=== PATIENT | female | born 1970 | race Caucasian/White ===

== ENCOUNTER 2016-07-07 08:20 | Emergency (ER) | END 2016-07-07 09:39 | disposition home or self-care (01) | DX: J06.9 Acute upper respiratory infection, unspecified (principal); J45.909 Unspecified asthma, uncomplicated | CPT/HCPCS: 71010; Z7502 ==

== ENCOUNTER 2016-07-16 09:42 | Emergency (ER) | payer OTHER ==
[~2016-07-16] VITALS: Wt 68.0 kg
[~2016-07-16 09:42] MED LIST: BENZ100C70 PO; D-ME473S2 PO; FLUT9.9S NASAL
[2016-07-16] MEDS ORDERED: ALBUTEROL 0.5% (NEB) 2.5 MG/0.5 ML AMP HHN STA (10:32)
[2016-07-16] MEDS ORDERED: IPRATROPIUM (NEB) 0.5 MG/2.5 ML AMP HHN ONE (11:00)
[2016-07-16] MEDS ORDERED: METHYLPREDNISOLONE 125 MG INJ IM ONE (11:00)
[2016-07-16] MEDS ORDERED: PRED20TA PO (12:05)
[2016-07-16] MEDS ORDERED: ALBU18HF INHALATION (12:05)
[2016-07-16] MEDS ORDERED: ALBU2.5V3 NEB (12:05)
[2016-07-16] MEDS ORDERED: AZIT250T94 PO (12:05)
--- NOTE | 2016-07-28 17:29 | ERD ---
ER Documentation Chief Complaint Date/Time DATE: 07/28/16 TIME: 17:27 Chief Complaint COUGH AND CONGESTION NOT BETTER WITH MEDS, PRODUCTIVE COUGH NOW HPI This 45-year-old female presents with cough and congestion last few days. She was treated last week with [id number]-[id number] cough syrup and Tessalon Perles. Patient has productive sputum and possible wheeze. She denies chest pain, vomiting, abdominal pain, diarrhea. ROS All systems reviewed and are negative except as per history of present illness. Medications Home Meds Active Scripts Azithromycin* (Zithromax*) 250 Mg Tablet, 250 MG PO .ZPACK DIRECTED, #6 TAB TAKE 500 MG (2 TABS) THE FIRST DAY THEN 250 MG (1 TAB) DAYS 2-5 Prov:KODI OSCAR MD 07/16/16 Albuterol Sulfate* (Ventolin HFA*) 18 Gm Hfa.aer.ad, 2 PUFF INHALATION Q4H, #1 INHALER Prov:KODI OSCAR MD 07/16/16 Albuterol Sulfate* (Albuterol Sulfate* Neb) 0.083%-3 Ml Neb, 2.5 MG NEB Q4 Y for SHORTNESS OF BREATH, #30 EA Prov:KODI OSCAR MD 07/16/16 Prednisone* (Prednisone*) 20 Mg Tab, 60 MG PO DAILY for 5 Days, #12 TAB 60 mg by mouth for 2 days then 40 mg by mouth for 3 days. Prov:KODI OSCAR MD 07/16/16 Dextromethorphan Hb-Promethazine Hcl* (Promethazine DM* Syrup) 473 Ml Syrup, 5 ML PO Q6 Y for COUGH for 7 Days, ML Prov:KERWIN LONDONO PA-C 07/07/16 Fluticasone Propionate (Flonase Allergy Relief) 9.9 Ml [place].susp, 1 SPRAY NASAL BID, #1 BOTTLE TO EACH NOSTRIL Prov:KERWIN LONDONO PA-C 07/07/16 Benzonatate* (Tessalon Perle*) 100 Mg Capsule, 100 MG PO Q8H Y for COUGH for 14 Days, CAP Prov:KERWIN LONDONOC 07/07/16 Allergies Allergies: Coded Allergies: No Known Allergy (Unverified , 07/07/16) PMhx/Soc History of Surgery: No Anesthesia Reaction: No Hx Neurological Disorder: No Hx Respiratory Disorders: Yes (ASTHMA) Hx Cardiac Disorders: No Hx Psychiatric Problems: No Hx Miscellaneous Medical Probl: Yes (TUBAL LIGATION) Hx Alcohol Use: Yes (once/6 months) Hx Substance Use: No Hx Tobacco Use: No Physical Exam Physical Exam Const: [] Alert, [id number] per Head: Atraumatic Eyes: Normal Conjunctiva ENT: Normal External Ears, Nose and Mouth. Neck: Full range of motion..~ No meningismus. Resp: Clear to auscultation bilaterally. Coarse breath sounds with mild wheeze. No rales or retractions. Cardio: Regular rate and rhythm, no murmurs Abd: Soft, non tender, non distended. Normal bowel sounds Skin: No petechiae or rashes Back: No midline or flank tenderness Ext: No cyanosis, or edema Neur: Awake and alert Psych: Normal Mood and Affect Results 24 hrs Current Medications Medications (Trade) Dose Ordered Sig/Melba Route PRN Reason Start Time Stop Time Status Last Admin Dose Admin Albuterol (Proventil 0.5% (Neb)) 5 mg ONCE STAT HHN 07/16/16 10:32 07/16/16 10:47 DC 07/16/16 10:54 Ipratropium [place] (Atrovent 0.02% (Neb)) 0.5 mg ONCE ONCE HHN 07/16/16 11:00 07/16/16 11:01 DC 07/16/16 10:54 Methylprednisolone Sodium Succinate (Solu-Medrol) 125 mg ONCE ONCE IM 07/16/16 11:00 07/16/16 11:01 DC 07/16/16 10:50 Procedures/MDM Patient had normal x-ray last week. Patient has signs and symptoms of bronchitis with wheezing. Given the duration and persistent symptoms. She will be treated with a short course prednisone, Zithromax and refills of albuterol for nebulizer and inhaler. Patient shows no signs of hypoxemia or respiratory distress. The patient was stable with no new complaints during the ER course. Clinically, there is no current evidence to suggest meningitis, sepsis, acute abdomen, pneumonia, acute coronary syndrome, pulmonary embolism, or any other emergent condition appearing to require further evaluation or hospitalization. The patient should certainly return for any new or worsening symptoms per the aftercare instructions. They should otherwise follow-up with her primary care doctor for reevaluation this week. Departure Diagnosis: Primary Impression: URI, acute Condition: Stable Patient Instructions: Bronchitis With Wheezing (Adult) Additional Instructions: Recheck for new or worsening symptoms or with primary care doctor per KODI OSCAR MD Jul 28, 2016 17:29
== END 2016-07-16 12:27 | disposition home or self-care (01) ==
LOC: FTE 09:42
DX: R05 Cough (principal); J45.909 Unspecified asthma, uncomplicated
CPT/HCPCS: 94664; 96372; J2930; Z7502; Z7610

== ENCOUNTER 2016-08-30 11:30 | Emergency (ER) | payer OTHER ==
[~2016-08-30] VITALS: Wt 78.0 kg
[~2016-08-30 11:30] MED LIST changes: +ALBU18HF INHALATION; +ALBU2.5V3 NEB; +AZIT250T94 PO; +PRED20TA PO
[2016-08-30] MEDS ORDERED: ONDANSETRON (ODT) 4 MG TAB ODT STA (12:08)
[2016-08-30] MEDS ORDERED: ACET325T33 PO (12:10)
[2016-08-30] MEDS ORDERED: ONDA4TAB8 PO (12:10)
--- NOTE | 2016-08-30 15:54 | ERD ---
DATE OF SERVICE: HISTORY OF PRESENT ILLNESS: The patient is a 45-year-old female complaining of diarrhea for 3 days. 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 She phan d vomiting 3 days ago, which has now resolved. She is able tolerate p.o. She has not had any abdom inal pain. She has been taking Imodium and ibuprofen with no alleviation of her symptoms. She also has been taking Pedialyte, which she feels has helped prevent her feeling more weak that she alread y is. MEDICAL HISTORY: Asthma. ALLERGIES TO MEDICATIONS: Denies. SURGICAL HISTORY: Denies. SOCIAL HISTORY: Denies. REVIEW OF SYSTEMS: A 12-point review of systems was done. Refer to HPI for positives, all other sy stems negative. PHYSICAL EXAMINATION VITAL SIGNS: Temperature is 99.1, pulse 78, blood pressure 152/68, respiratory 18, O2 saturation 99 % on room air. Pain intensity is 0/10. GENERAL: The patient is well-appearing, well-nourished, no acute distress. HEENT: Atraumatic. Conjunctivae are pink. Pupils equal, round, and reactive to light. There is no s cleral icterus. Tympanic membranes clear bilaterally. Oropharynx clear. No nystagmus or photophobia . CHEST: Clear to auscultation bilaterally. There are no rales, wheezes or rhonchi. HEART: Regular rate and rhythm. No murmurs, clicks, rubs or gallops. No S3 or S4. ABDOMEN: Soft, nontender and nondistended. Good bowel sounds. No rebound or guarding. No gross nella tonitis. No gross organomegaly or masses. No Owen sign or McBurney point tenderness. SKIN: There is no apparent rash or petechia. The skin is warm and dry. DIAGNOSIS: Diarrhea. MEDICAL DECISION MAKING: I have low suspicion for dehydration. The patient is not tachycardic and patient is able to tolerate p.o. with no vomiting. I have low suspicion for infectious diarrhea as the patient has had no bloody stool. She does not have abdominal pain on exam and vital signs are s table. The patient's symptoms are likely associated with viral etiology. I did not feel that there was indication for blood work or IV hydration at this time. The patient is tolerating p.o. and is stable for outpatient management. DISCHARGE: The patient is discharged stable. Patient given prescription for Zofran and Tylenol, an d told to follow up with primary care within 1 to 2 days for reevaluation. The patient was recommen ded to refrain from taking Imodium. All other questions answered at time of discharge. Discharge s ummary given at the time of departure. Patient understood and complied with plan. Dictated By: ROSEMARIE JEAN BAPTISTE PA for [facility] Conf#: [id number] DID#: [id number]
== END 2016-08-30 12:22 | disposition home or self-care (01) ==
LOC: FTE 11:30
DX: R19.7 Diarrhea, unspecified (principal); J45.909 Unspecified asthma, uncomplicated
CPT/HCPCS: Z7502; Z7610; 99283

== ENCOUNTER 2017-04-06 05:15 | Inpatient (IN) | payer OTHER ==
[2017-04-05 10:07] VITALS: BMI 26.6
[~2017-04-06] VITALS: Ht 160 cm; Wt 67.2 kg
[2017-04-06] VITALS (22 sets, daily range): BP systolic 119–138; BP diastolic 58–73; PULSE 18–113; RESP 18–20; Ht 160 cm; Wt 67.2 kg
--- NOTE | 2017-04-06 04:15 | PREOPHP ---
DATE OF ADMISSION: 04/06/2017 HISTORY OF PRESENT ILLNESS: This is a 46-year-old lady, 3, para 3. Her last normal menstrual period was about a week prior to admission. She was admitted for D and C, exploratory laparotomy, total abdominal hysterectomy, possible BSO if evidence of endometriosis. This patient complains of chronic pelvic pain for the last 8 years and getting worse up to the time of admission. She bleeds heavy with her periods, associated with blood clots. She is known to have multiple fibroids with possible submucous fibroids or endometrial polyps. The procedures were explained to the patient and she understood everything totally. The risks, benefits, and alternatives were discussed with her as well. PAST MEDICAL HISTORY: No history of diabetes, TB. The patient has a history of asthma. SURGICAL HISTORY: She had tubal ligation in 2003. FAMILY HISTORY: Mother has diabetes and father has high blood pressure. 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 She is 3, para 3 with 3 normal deliveries. REVIEW OF SYSTEMS: CARDIOVASCULAR: No chest pains. RESPIRATORY: No cough. GASTROINTESTINAL: No diarrhea. No vomiting. GENITOURINARY: No dysuria. PHYSICAL EXAMINATION: GENERAL APPEARANCE: Reveals a conscious, coherent lady, in no acute distress. VITAL SIGNS: Blood pressure 120/80, pulse rate 80 per minute, respirations 16 per minute. LUNGS: Breath sounds and lungs within normal limits. ABDOMEN: Soft. No organomegaly. PELVIC EXAM: Reveals the cervix to be firm. Uterus about 12 weeks size. Adnexa were negative for masses. RECTAL EXAM: Confirmed the pelvic findings. EXTREMITIES: No pedal edema. ADMITTING DIAGNOSES: 1. Chronic pelvic pain. 2. Fibroid uterus, possible submucous fibroid, rule out endometriosis. PLAN: The patient was planned to have the above procedures. Dictated By: Roxana Erazo MD /[email or web address]/[email or web address] /Document#: [id number]
[~2017-04-06 05:15] MED LIST changes: +ACET325T33 PO; +ONDA4TAB8 PO
[2017-04-06] MEDS ORDERED: ROCURONIUM 50 MG INJ ONE (07:25)
[2017-04-06] MEDS ORDERED: GLYCOPYRROLATE 0.4 MG INJ ONE ×2 (07:25→08:11)
[2017-04-06] MEDS ORDERED: NEOSTIGMINE 3 MG/3 ML SYRINGE ONE (07:25)
[2017-04-06] MEDS ORDERED: SUCCINYLCHOLINE CHLORIDE 100 MG/5 ML SYG IV ONE (07:25)
[2017-04-06] MEDS ORDERED: MEPERIDINE 100 MG INJ ONE (07:25)
[2017-04-06] MEDS ORDERED: PROPOFOL 20 ML ONE (07:25)
[2017-04-06] MEDS ORDERED: LIDOCAINE 2% (SDV) 5 ML INJ ONE (07:25)
[2017-04-06] MEDS ORDERED: CEFAZOLIN 1 GM INJ ONE (08:10)
[2017-04-06] MEDS ORDERED: METOCLOPRAMIDE 10 MG INJ ONE (08:46)
[2017-04-06] MEDS ORDERED: ONDANSETRON 4 MG INJ ONE (08:46)
--- NOTE | 2017-04-06 09:20 | SIPON ---
Date/Time of Note Date/Time of Note DATE: 04/06/17 TIME: 09:18 Operative Report Preoperative Diagnosis FIBROID UTERUS MENORRHAGIA CHRONIC PELVIC PAIN PERINEAL RELAXATION Postoperative Diagnosis FIBROID UTERUS MENORRHAGIA CHRONIC PELVIC PAIN PERINEAL RELAXATION RIGHT OVARIAN CYST FROZEN SECTION BENIGN Operation/Procedure Performed DILATATION AND CURETTAGE TOTAL ABDOMINAL HYSTERECTOMY VAGINAL VAULT SUSPENSION RIGHT OVARIAN CYSTECTOMY Surgeon see signature line training assistant DR CARABALLO Anesthesia: general Estimated blood loss: 150 - 200 ml's Transfusion Required none Specimen CERVIX BODY OF UTERUS Grafts/Implants none Complications none FIDEL FLORES MD Apr 06, 2017 09:20
[2017-04-06] MEDS ORDERED: METOCLOPRAMIDE 10 MG INJ IV PRN (09:30)
[2017-04-06] MEDS ORDERED: LABETALOL HCL 20MG INJ IV PRN (09:30)
[2017-04-06] MEDS ORDERED: MIDAZOLAM 1 MG/ML 2 ML INJ IV PRN (09:30)
[2017-04-06] MEDS ORDERED: MEPERIDINE 25 MG INJ IV PRN (09:30)
[2017-04-06] MEDS ORDERED: EPHEDrine SULFATE 50 MG/5 ML SYG IV PRN (09:30)
[2017-04-06] MEDS ORDERED: OXYCODONE/ACETAMINOPHEN (5/325) TAB PO PRN ×2 (09:30)
[2017-04-06] MEDS ORDERED: ONDANSETRON 4 MG INJ IV PRN ×2 (09:30→13:30)
[2017-04-06] MEDS ORDERED: FENTAnyl 50 MCG/ML VIAL IV PRN ×3 (09:30)
[2017-04-06] MEDS ORDERED: DIPHENHYDRAMINE 50 MG INJ IV PRN (09:30)
[2017-04-06] MEDS ORDERED: HYDROmorphONE (0.2 MG/ML) 10ML SYG IV PRN ×2 (09:30)
[2017-04-06] MEDS ORDERED: hydrALAzine 20 MG INJ IV PRN (09:30)
[2017-04-06] MEDS: HYDROmorphONE (0.2 MG/ML) 10ML SYG IV PRN ×3 (09:44→09:59)
--- NOTE | 2017-04-06 10:59 | OPR ---
DATE OF OPERATION: 04/06/2017 PREOPERATIVE DIAGNOSES: 1. Fibroid uterus. 2. Menorrhagia. 3. Chronic pelvic pain. 4. Perineal relaxation. POSTOPERATIVE DIAGNOSES: 1. Fibroid uterus. 2. Menorrhagia. 3. Chronic pelvic pain. 4. Perineal relaxation. 5. Right ovarian cyst. SURGEON: Roxana Erazo MD RIBBON HAND: Ethan Mora MD ANESTHESIA: General. OPERATION PERFORMED: Fractional dilatation and curettage, frozen section and benign exploratory laparotomy, total abdominal hysterectomy, vaginal vault suspension, and right ovarian cystectomy. OPERATIVE TECHNIQUE: Under general anesthesia, the patient was prepped and draped in the usual fashion for vaginal and abdominal surgery. Pelvic exam under anesthesia revealed the cervix to be firm, uterus about 12 weeks' size and irregular. Then, the heavyweight vaginal retractor was put in place, and the anterior lip of the cervix was grasped with an Allis clamp, and the cervical dilatation up to Hegar 6 was proceeded. Uterus was sounded to about 3 inches. Then, the cervical curettage was done. A small amount of tissue was obtained. Endometrial curettage was done, and a small amount of tissue was obtained. This was sent for frozen section, and it was benign. Then, the Hernandez catheter was put in place. The patient's legs were put down, and the patient was prepped and draped in the usual fashion for abdominal surgery. Then, a Pfannenstiel incision, about 12 cm skin incision, was performed. The incision was carried from the skin up to the fascia. Upon opening the skin up to the fascia, the small blood vessels were noted to be oozing, and these were all cauterized. Fascia was opened transversely followed by splitting the muscles vertically and the peritoneum vertically. Upon opening the abdominal cavity, the operative abdominal organs were palpated. They were within normal limits. Then, the pelvic organs were brought to view. There is a 4 x 4- cm cyst on the right ovary, and then the uterus was noted to be about 12 weeks' size with small fibroids noted. Status post tubal ligation was noted. Then, the self-retaining retractor was put in place. The bladder blade was put in place. The bowels were packed away from the operative field with the aid of 6 wet lap sponges. The upper blade was put in place. Then, two 8-inch Kochers were placed at its paratubal and paraovarian ligament for traction. The left round ligament was grasped with 2 Kochers and cut. A stick tie with 0 Vicryl was used and cut. Then, the left broad ligament was skeletonized for the development of the bladder flap. Then, the left utero-ovarian and uterotubal ligament was grasped with 2 Breezy clamps and cut. A stick tie of 0 Vicryl was used followed by a free tie with 0 Vicryl was used followed by Breezy suture. Bleeders were checked, and there was no bleeding noted. Same thing was done on the right side. The right round ligament was stick tied with 0 Vicryl and cut and tied. The right broad ligament was skeletonized for the development of the bladder flap. The right utero-ovarian and right uterotubal ligament was grasped with 2 Breezy clamps for backflow with straight Rock and cut. At first, a free tie with 0 Vicryl was used followed by Breezy suture. Bleeders were checked, and there was no bleeding noted. Then, the right ovary was noted to have a 4 x 4-cm cyst. The cautery was placed at the middle of the cyst and the cyst ruptured. It was noted to be a chocolate-colored cyst. Then, electrocautery on the right ovary to check for any bleeder, and there was no bleeding noted. Then, the broad ligament on both sides were skeletonized for the development of the bladder flap. Then, the left uterine vessels were brought to view. The left uterine vessels were grasped with 2 Breezy clamps and for backflow with straight Rock and cut. A stick tie with 0 Vicryl was used on its clamp. The same thing was done on the right side. Bleeders were checked, and there was no bleeding noted. Once again, the bladder was from the cervix by sharp and blunt dissection. Then, about 4 more Kochers were placed at its paracervical tissue on the left and right side. Every time the Rock was put in, the bladder was from the cervix by sharp and blunt dissection. Then, the bleeders were checked, and there was no bleeding noted. First, the body of the uterus was excised after clamping the uterine vessel. Then, another piece of cervix was excised after putting the 4 Kochers on each side. Then, the remaining cervix was grasped with 2 single-tooth tenaculums. Once again, about 5 more Kochers were placed at its paracervical tissue on the left and right side, and its Rock tissue was cut, and stick tie with 0 Vicryl was used. Then, the cervicovaginal angle was brought to view, and it was stabbed with a knife, and the rest of the cervix was excised. Then, the vaginal cuff was grasped with multiple Kochers. Then, the vaginal cuff was sutured in 2 layers using 0 Vicryl continuous suture. The right angle of the vagina was sutured with a right paracervical tissue and in turn tied with the right round ligament for vaginal vault suspension. After checking for any bleeders, in which there was none, same thing was done on the left side. Irrigation was done. There was some oozing on the right angle of the vaginal vault and 2 figure-of- eight sutures were put in. This was on the anterior vaginal wall. Once again, irrigation was done to check for any bleeders, and there was no bleeding noted. Then, after checking all the stumps for any bleeders in which there was none, and after correct sponge count, needle count, and instrument count, the abdomen was closed in the usual fashion using 0 Vicryl for the peritoneum, 0 Vicryl for the muscles. For the fascia, 0 Vicryl continuous stitch was used followed by a few [id number]-oy-oqgrj sutures. For the subcutaneous tissue, it was closed with 3-0 Vicryl, and the skin was closed with 3-0 Vicryl. Subcuticular suture was used. Patient tolerated the procedure well. ESTIMATED BLOOD LOSS: About 200 mL. CONDITION: Vital signs were stable during and after the procedure. Dictated By: Roxana Erazo MD /[email or web address] /Document#: [id number]
[2017-04-06] MEDS: LACTATED RINGER'S 1,000 ML IV SCH ×2 (12:18→19:51)
[2017-04-06] MEDS: ONDANSETRON 4 MG INJ IV PRN ×2 (13:31→17:37)
[2017-04-06] MEDS: HYDROmorphONE 2 MG/ML SYG IV PRN ×2 (13:31→17:38)
[2017-04-07 00:30] VITALS: BP 121/59; RESP 18
[2017-04-07] MEDS: LACTATED RINGER'S 1,000 ML IV SCH ×3 (02:45→16:23)
[2017-04-07 04:48] VITALS: BP 134/70; PULSE 101; RESP 20
[2017-04-07] MEDS: BISACODYL 10 MG SUPP PR SCH ×2 (05:31→16:29)
[2017-04-07] MEDS: MAGNESIUM HYDROXIDE 30ML CUP PO SCH ×2 (05:31→16:29)
[2017-04-07 05:32] LABS: BASOPHILS % 0.1 % (0.0-2.0); EOSINOPHILS % 0.1 % (0.0-7.0); HEMATOCRIT 31.5 % (37.0-47.0); HEMOGLOBIN 9.6 g/dl (12.0-16.0); LYMPHOCYTES # 1.4 10^3/ul (0.8-2.9); LYMPHOCYTES % 11.5 % (15.0-51.0); MEAN CORPUSCULAR HEMOGLOBIN 23.8 pg (29.0-33.0); MEAN CORPUSCULAR HGB CONC 30.5 g/dl (32.0-37.0); MEAN PLATELET VOLUME 10.8 fl (7.4-10.4); MONOCYTE # 0.8 10^3/ul (0.3-0.9); MONOCYTES % 6.6 % (0.0-11.0); NEUTROPHIL # 9.8 10^3/ul (1.6-7.5); NEUTROPHILS % 81.3 % (39.0-77.0); PLATELET COUNT 204 10^3/UL (140-415); RED BLOOD COUNT 4.04 10^6/ul (4.20-5.40)
[2017-04-07 06:03] LABS: ALBUMIN 3.1 g/dl (3.3-4.9); ALBUMIN/GLOBULIN RATIO 0.96; BILIRUBIN,INDIRECT 0.2 mg/dl (0-1.1); BILIRUBIN,TOTAL 0.2 mg/dl (0.2-1.3); CALCIUM 8.6 mg/dl (8.4-10.2); CREATININE 0.58 mg/dl (0.44-1.00); POTASSIUM 3.9 mmol/L (3.5-5.1); TOTAL PROTEIN 6.3 g/dl (6.1-8.1)
[2017-04-07 08:30] VITALS: BP 114/60; RESP 18
[2017-04-07] MEDS ORDERED: INFLUENZA VIRUS VACCINE 0.5 ML SYG IM* ONE (12:00)
[2017-04-07] MEDS: HYDROmorphONE 2 MG/ML SYG IV PRN (13:57)
[2017-04-07] MEDS ORDERED: HYDROmorphONE 2 MG TAB PO PRN (15:30)
[2017-04-07] MEDS ORDERED: IBUPROFEN 800 MG TAB PO PRN (15:30)
[2017-04-07] MEDS: ALBUTEROL 18 GM INHALER INH PRN (19:37)
[2017-04-07 20:13] VITALS: BP 126/58; RESP 18
[2017-04-07] MEDS: GUAIFENESIN/DM 5ML CUP PO SCH (22:36)
[2017-04-08] MEDS: ALBUTEROL 18 GM INHALER INH PRN (00:07)
[2017-04-08 00:29] VITALS: BP 107/54; RESP 20
[2017-04-08] MEDS: LACTATED RINGER'S 1,000 ML IV SCH ×2 (04:00→11:33)
[2017-04-08 05:22] LABS: BASOPHILS % 0.2 % (0.0-2.0); EOSINOPHILS % 0.4 % (0.0-7.0); HEMATOCRIT 31.2 % (37.0-47.0); HEMOGLOBIN 9.5 g/dl (12.0-16.0); LYMPHOCYTES # 1.7 10^3/ul (0.8-2.9); LYMPHOCYTES % 18.1 % (15.0-51.0); MEAN CORPUSCULAR HEMOGLOBIN 23.8 pg (29.0-33.0); MEAN CORPUSCULAR HGB CONC 30.4 g/dl (32.0-37.0); MEAN CORPUSCULAR VOLUME 78.2 fl (82.0-101.0); MEAN PLATELET VOLUME 10.9 fl (7.4-10.4); MONOCYTE # 0.6 10^3/ul (0.3-0.9); MONOCYTES % 6.5 % (0.0-11.0); NEUTROPHIL # 7.1 10^3/ul (1.6-7.5); NEUTROPHILS % 74.3 % (39.0-77.0); PLATELET COUNT 198 10^3/UL (140-415); RED BLOOD COUNT 3.99 10^6/ul (4.20-5.40); RED CELL DISTRIBUTION WIDTH 16.3 % (11.5-14.5); WHITE BLOOD COUNT 9.6 10^3/ul (4.8-10.8)
[2017-04-08 07:49] VITALS: BP 113/55; RESP 19
[2017-04-08] MEDS: GUAIFENESIN/DM 5ML CUP PO SCH ×2 (08:34→12:28)
[2017-04-08 14:00] VITALS: BP 118/59; RESP 18
== END 2017-04-08 18:50 | disposition home or self-care (01) | DRG 743 ==
LOC: REC 05:15 → MS1 10:35
PROVIDERS: ADMIT Obstetrics & Gynecology; ATTEND Obstetrics & Gynecology
PROC: 0UB00ZZ Excision of Right Ovary, Open Approach (ICD-10-PCS; 2017-04-06)
PROC: 0USG0ZZ Reposition Vagina, Open Approach (ICD-10-PCS; 2017-04-06)
PROC: 0UDB7ZX Extraction of Endometrium, Via Natural or Artificial Opening, Diagnostic (ICD-10-PCS; 2017-04-06)
PROC: 0UT90ZZ Resection of Uterus, Open Approach (ICD-10-PCS; principal; 2017-04-06 07:30)
DX: D25.1 Intramural leiomyoma of uterus (principal); N81.89 Other female genital prolapse; N92.0 Excessive and frequent menstruation with regular cycle; N83.201 Unspecified ovarian cyst, right side
CPT/HCPCS: 80053; 84702; 85025; 86850; 86900; 86901; 88305; 88331; 90686; J0690; J1170; J2175; J2405; J2710; J2765; J7120

== ENCOUNTER 2017-12-22 13:10 | Emergency (ER) | END 2017-12-22 18:25 | disposition home or self-care (01) ==

== ENCOUNTER 2018-06-12 15:36 | Emergency (ER) | payer OTHER ==
[~2018-06-12] VITALS: Ht 167.6 cm; Wt 69.6 kg
[~2018-06-12 15:36] MED LIST changes: +AZIT250T PO; -AZIT250T94 PO; +BENZ-6 PO; -BENZ100C70 PO; +IBUP-1542 PO; +ONDA4TAB14 PO
[2018-06-12 15:43] VITALS: BP 134/69; PULSE 93; RESP 20; Ht 167.6 cm; Wt 69.6 kg
[2018-06-12] MEDS ORDERED: IBUP800T48 PO (16:21)
[2018-06-12] MEDS ORDERED: AMOX500T PO (16:21)
--- NOTE | 2018-06-13 02:03 | ERD ---
ER Documentation Chief Complaint Chief Complaint Complains of bilateral ear pain and right jaw pain HPI 47-year-old female presents for left jaw pain times 7 days. Jaw pain is rated 5 out of 10. She was recently seen by a dentist for which she states his nerve damage. She was told that she needs a root canal. However there is some insurance issues she was unable to get the procedure done and was referred to a different dentists. She states that she was initially given a prescription for amoxicillin to prevent infection. However she states that she ran out currEnbase. She states that she had subjective fever for which she took Tylenol with some relief. ROS All systems reviewed and are negative except as per history of present illness. Medications Home Meds Active Scripts Ibuprofen* (Motrin*) 800 Mg Tab, 800 MG PO Q8H PRN for PAIN AND OR ELEVATED TEMP, #30 TAB Prov:BRENDAN PORTILLO DO 06/12/18 Amoxicillin Trihydrate (Amoxicillin) 500 Mg Tablet, 500 MG PO Q6H for dental infection, #21 TAB Prov:BRENDAN PORTILLO DO 06/12/18 Ondansetron (Ondansetron Odt) 4 Mg Tab.rapdis, 4 MG PO Q6H PRN for NAUSEA AND/OR VOMITING, #10 TAB Prov:SWATHI KELLY PA-C 12/22/17 Ibuprofen* (Motrin*) 600 Mg Tab, 600 MG PO Q6, #30 TAB Prov:SWATHI KELLY PA-C 12/22/17 Acetaminophen* (Tylenol*) 325 Mg Tablet, 2 TAB PO Q6 PRN for PAIN AND OR ELEVATED TEMP, #20 TAB Prov:SHERRIE JEAN BAPTISTE PA-C 08/30/16 Ondansetron Hcl* (Zofran*) 4 Mg Tablet, 4 MG PO Q6H for NAUSEA AND/OR VOMITING, #30 TAB Prov:SHERRIE JEAN BAPTISTE PA-C 08/30/16 Azithromycin* (Zithromax*) 250 Mg Tablet, 250 MG PO .RAGHAVENDRA DIRECTED, #6 TAB TAKE 500 MG (2 TABS) THE FIRST DAY THEN 250 MG (1 TAB) DAYS 2-5 Prov:KODI OSCAR MD 07/16/16 Albuterol Sulfate* (Ventolin HFA*) 18 Gm Hfa.aer.ad, 2 PUFF INHALATION Q4H, #1 INHALER Prov:KODI OSCAR MD 07/16/16 Albuterol Sulfate* (Albuterol Sulfate* Neb) 0.083%-3 Ml Neb, 2.5 MG NEB Q4 PRN for SHORTNESS OF BREATH, #30 EA Prov:KODI OSCAR MD 07/16/16 Prednisone* (Prednisone*) 20 Mg Tab, 60 MG PO DAILY for 5 Days, #12 TAB 60 mg by mouth for 2 days then 40 mg by mouth for 3 days. Prov:KODI OSCAR MD 07/16/16 Dextromethorphan Hb-Promethazine Hcl* (Promethazine DM* Syrup) 473 Ml Syrup, 5 ML PO Q6 PRN for COUGH for 7 Days, ML Prov:KERWIN LONDONO PA-C 07/07/16 Fluticasone Propionate (Flonase Allergy Relief) 9.9 Ml [place].susp, 1 SPRAY NASAL BID, #1 BOTTLE TO EACH NOSTRIL Prov:KERWIN LONDONO PA-C 07/07/16 Benzonatate* (Tessalon Perle*) 100 Mg Capsule, 100 MG PO Q8H PRN for COUGH for 14 Days, CAP Prov:KERWIN LONDONO PA-C 07/07/16 Allergies Allergies: Coded Allergies: No Known Allergies (Verified Allergy, Unknown, 06/12/18) PMhx/Soc History of Surgery: Yes (BTL) Anesthesia Reaction: No Hx Neurological Disorder: No Hx Respiratory Disorders: Yes (ASTHMA) Hx Cardiac Disorders: No Hx Psychiatric Problems: No Hx Miscellaneous Medical Probl: No Hx Alcohol Use: No Hx Substance Use: No Hx Tobacco Use: No Smoking Status: Never smoker Physical Exam Vitals Vital Signs Date Temp Pulse Resp B/P (MAP) Pulse Ox O2 O2 Flow FiO2 Time Delivery Rate 06/12/18 99.1 93 20 134/69 97 15:43 (90) Physical Exam Const: No acute distress Head: Atraumatic Eyes: Normal Conjunctiva ENT: Normal External Ears, Nose, no oral lesion noted, no abscess note, dental caries noted right lower molar. Neck: Full range of motion. No meningismus. Resp: Clear to auscultation bilaterally Cardio: Regular rate and rhythm, no murmurs Skin: No petechiae or rashes Ext: No cyanosis, or edema Neur: Awake and alert Psych: Normal Mood and Affect Procedures/MDM Medical Decision Making: Differential diagnosis includes but not limited to dental caries, oral abscess, tonsillitis, pharyngitis. Patient appear well on physical examination, nontoxic appearing. Oral examination consistent with dental caries. Patient given prescription for antibiotics and Motrin. Discussed with patient the importance of follow-up with a dentist. She agrees w ith plan. Patient states that she will get a dental appointment. Patient advised to follow up with PCP in 1-2 days. Patient advised to return to ED for new or worsening symptoms. Patient stable on discharge from the ED. Disclaimer: Inadvertent spelling and grammatical errors are likely due to EHR/dictation software use and do not reflect on the overall quality of patient care. Also, please note that the electronic time recorded on this note does not necessarily reflect the actual time of the patient encounter. Departure Diagnosis: Primary Impression: Jaw pain Condition: Fair Patient Instructions: Dental Cavity Referrals: [facility] YOU HAVE RECEIVED A MEDICAL SCREENING EXAM AND THE RESULTS INDICATE THAT YOU DO NOT HAVE A CONDITION THAT REQUIRES URGENT TREATMENT IN THE EMERGENCY DEPARTMENT. FURTHER EVALUATION AND TREATMENT OF YOUR CONDITION CAN WAIT UNTIL YOU ARE SEEN IN YOUR DOCTORS OFFICE WITHIN THE NEXT 1-2 DAYS. IT IS YOUR RESPONSIBILITY TO MAKE AN APPOINTMENT FOR FOLOW-UP CARE. IF YOU HAVE A PRIMARY DOCTOR --you should call your primary doctor and schedule an appointment IF YOU DO NOT HAVE A PRIMARY DOCTOR YOU CAN CALL OUR PHYSICIAN REFERRAL HOTLINE AT IF YOU CAN NOT AFFORD TO SEE A PHYSICIAN YOU CAN CHOSE FROM THE FOLLOWING [facility] [address] [facility]. [facility] [address] [facility] [facility] [address] [facility] [facility] [address] [facility] [address] [facility]. [facility]. [address] Additional Instructions: Call your primary care doctor TOMORROW for an appointment during the next 1-2 days.See the doctor sooner or return here if your condition worsens before your appointment time. BRENDAN PORTILLO DO Jun 13, 2018 02:03
== END 2018-06-12 17:34 | disposition home or self-care (01) ==
LOC: FTE 15:36
DX: R68.84 Jaw pain (principal); J45.909 Unspecified asthma, uncomplicated
CPT/HCPCS: 99283

== ENCOUNTER 2018-08-17 09:52 | Emergency (ER) | payer OTHER ==
[~2018-08-17] VITALS: Wt 71.4 kg
[~2018-08-17 09:52] MED LIST changes: +AMOX500T PO; +IBUP800T48 PO
[2018-08-17] MEDS ORDERED: LOPE2CAP PO (11:18)
[2018-08-17] MEDS ORDERED: CIPR500T4 PO (11:18)
--- NOTE | 2018-08-17 11:22 | ERD ---
ER Documentation Chief Complaint Chief Complaint Diarrhea since last night; Lower abd pain; nausea HPI 47-year-old female presents the emergency department diarrhea. Patient states she was in her usual state of health until proximal 24-48 hours ago which time she developed a flulike illness. She then became constipated and took some Pepto-Bismol. This morning, she began developing diarrhea. She reports that the diarrhea had some mucus in it but no blood. Patient reported no fevers but she had some chills. She had nausea but no vomiting. She is been able to tolerate oral intake. She continues to have watery stool and came to the emergency room for evaluation. ROS All systems reviewed and are negative except as per history of present illness. Medications Home Meds Active Scripts Ciprofloxacin Hcl* (Ciprofloxacin Hcl*) 500 Mg Tablet, 500 MG PO BID for 5 Days, TAB Prov:ASPEN FLORENCE 08/17/18 Loperamide Hcl* (Imodium*) 2 Mg Capsule, 2 MG PO .AFTER EA LOOSE BM PRN for DIARRHEA, #10 TAB Prov:ASPEN FLORENCE 08/17/18 Ibuprofen* (Motrin*) 800 Mg Tab, 800 MG PO Q8H PRN for PAIN AND OR ELEVATED TEMP , #30 TAB Prov:BRENDAN PORTILLO DO 06/12/18 Amoxicillin Trihydrate (Amoxicillin) 500 Mg Tablet, 500 MG PO Q6H for dental infection, #21 TAB Prov:BRENDAN PORTILLO DO 06/12/18 Ondansetron (Ondansetron Odt) 4 Mg Tab.rapdis, 4 MG PO Q6H PRN for NAUSEA AND/OR VOMITING, #10 TAB Prov:SWATHI KELLY PA-C 12/22/17 Ibuprofen* (Motrin*) 600 Mg Tab, 600 MG PO Q6, #30 TAB Prov:SWATHI KELLY PA-C 12/22/17 Acetaminophen* (Tylenol*) 325 Mg Tablet, 2 TAB PO Q6 PRN for PAIN AND OR ELEVATED TEMP, #20 TAB Prov:SHERRIE JEAN BAPTISTE PA-C 08/30/16 Ondansetron Hcl* (Zofran*) 4 Mg Tablet, 4 MG PO Q6H for NAUSEA AND/OR VOMITING, #30 TAB Prov:SHERRIE JEAN BAPTISTE PA-C 08/30/16 Azithromycin* (Zithromax*) 250 Mg Tablet, 250 MG PO .ZPACK DIRECTED, #6 TAB TAKE 500 MG (2 TABS) THE FIRST DAY THEN 250 MG (1 TAB) DAYS 2-5 Prov:KODI OSCAR MD 07/16/16 Albuterol Sulfate* (Ventolin HFA*) 18 Gm Hfa.aer.ad, 2 PUFF INHALATION Q4H, #1 INHALER Prov:KODI OSCAR MD 07/16/16 Albuterol Sulfate* (Albuterol Sulfate* Neb) 0.083%-3 Ml Neb, 2.5 MG NEB Q4 PRN for SHORTNESS OF BREATH, #30 EA Prov:KODI OSCAR MD 07/16/16 Prednisone* (Prednisone*) 20 Mg Tab, 60 MG PO DAILY for 5 Days, #12 TAB 60 mg by mouth for 2 days then 40 mg by mouth for 3 days. Prov:KODI OSCAR MD 07/16/16 Dextromethorphan Hb-Promethazine Hcl* (Promethazine DM* Syrup) 473 Ml Syrup, 5 ML PO Q6 PRN for COUGH for 7 Days, ML Prov:KERWIN LONDONO PA-C 07/07/16 Fluticasone Propionate (Flonase Allergy Relief) 9.9 Ml [place].susp, 1 SPRAY NASAL BID, #1 BOTTLE TO EACH NOSTRIL Prov:KERWIN LONDONOC 07/07/16 Benzonatate* (Tessalon Perle*) 100 Mg Capsule, 100 MG PO Q8H PRN for COUGH for 14 Days, CAP Prov:KERWIN LONDONOC 07/07/16 Allergies Allergies: Coded Allergies: No Known Allergies (Verified Allergy, Unknown, 06/12/18) PMhx/Soc History of Surgery: Yes (HYSTERECTOMY) Anesthesia Reaction: No Hx Neurological Disorder: No Hx Respiratory Disorders: Yes (ASTHMA) Hx Cardiac Disorders: No Hx Psychiatric Problems: No Hx Miscellaneous Medical Probl: No Hx Alcohol Use: No Hx Substance Use: No Hx Tobacco Use: No Smoking Status: Never smoker FmHx Noncontributory for chief complaint Physical Exam Vitals Vital Signs Date Temp Pulse Resp B/P (MAP) Pulse Ox O2 O2 Flow FiO2 Time Delivery Rate 3/6/19 99.0 98 18 169/77 97 09:56 (107) Physical Exam GENERAL: The patient is well developed and appropriate for usual state of health in no apparent distress. Patient appears well-hydrated HEENT: Pupils equal, round, and reactive to light. EOMI. There is no scleral icterus. NECK: C-spine is soft and supple, there is no meningismus. There is no cervical lymphadenopathy. LUNGS: Clear to auscultation bilaterally. There are no rales, wheezes or rhonchi. HEART: Regular rate and rhythm, no murmurs, clicks, rubs or gallops. ABDOMEN: Soft, non-tender, non-distended. There are bowel sounds in all four quadrants. No rebound or guarding. EXTREMITIES: There is no peripheral cyanosis or edema. No focal swelling or erythema. NEURO: The patient moves all four extremities with 5/5 strength. Cranial nerves II - XII are intact. Normal gait. Alert and oriented SKIN: There is no apparent rash or petechiae. HEME/LYMPHATIC: There is no evidence of excessive bruising or lymphedema. PSYCHIATRIC: The patient does not appear anxious or depressed. Procedures/MDM Patient was taken to a room, seen and examined Medical decision makin-year-old female presents the emergency department with a diarrheal illness of uncertain etiology. This appears to be a simple diarrheal illness with no evidence of dehydration, sepsis or abdominal tenderness. Patient is appropriate for outpatient supportive care. After discussions with the patient, I am prescribing an antibiotic but have informed her that I would not use this unless this is not improved or getting worse in the next 2 days. Departure Diagnosis: Primary Impression: Diarrhea Condition: Stable Patient Instructions: Treating Diarrhea Additional Instructions: See your doctor or return here in the few days if not improved ASPEN FLORENCE Aug 17, 2018 11:22
[2018-08-17 11:24] VITALS: BP 129/87; PULSE 75; RESP 18
== END 2018-08-17 11:36 | disposition home or self-care (01) ==
LOC: E/R 09:52
DX: R19.7 Diarrhea, unspecified (principal); J45.909 Unspecified asthma, uncomplicated
CPT/HCPCS: 99283

== ENCOUNTER 2018-11-11 01:38 | Emergency (ER) | payer OTHER ==
[~2018-11-11] VITALS: Ht 162.6 cm; Wt 71.7 kg
[~2018-11-11 01:38] MED LIST changes: +CIPR500T4 PO; +LOPE2CAP PO
[2018-11-11 01:45] VITALS: Ht 162.6 cm; Wt 71.7 kg
--- NOTE | 2018-11-11 03:06 | ERD ---
ER Documentation Chief Complaint Chief Complaint cought with ear pain x 1 month HPI This is a 48-year-old female who presents here to emergency department with complaints of cough for about a month, ear pain. LMP: Unknown. Denies headache, head injury, loss of consciousness, dizziness, neck pain, neck stiffness, throat pain, difficulty swallowing, difficulty breathing lying flat, shoulder pain, chest pain, back pain, abdominal pain, nausea, vomiting, constipation, diarrhea, urinary symptoms, or possibility being , loss of bowel and bladder control, trauma, injury, falls, difficulty walking due to pain, numbness or tingling sensation, calf pain, recent travel, recent major surgery in the last 3 weeks, calf pain, recent long travel, recent exposure to any illness, recent antibiotic use in the last 3 months, fever, chills, seizures. Past medical history: Asthma. Surgical history: Hysterectomy. Social: Denies smoking, use of alcoholic beverages, use of illegal drugs. ROS All systems reviewed and are negative except as per history of present illness. Medications Home Meds Active Scripts Ibuprofen* (Motrin*) 800 Mg Tab, 800 MG PO Q6H PRN for PAIN AND OR ELEVATED TEMP, #30 TAB Prov:ALLY PEARSON 11/11/18 Benzonatate* (Tessalon Perle*) 100 Mg Capsule, 100 MG PO Q8H PRN for COUGH, #15 CAP Prov:ALLY PEARSON Delfina 11/11/18 Albuterol Sulfate* (Proair HFA*) 8.5 Gm Hfa.aer.ad, 2 PUFF INH Q4 PRN for SHORTNESS OF BREATH, #1 INHALER Prov:PASLALY HALL 11/11/18 Prednisone* (Prednisone*) 20 Mg Tab, 40 MG PO DAILY for 4 Days, TAB Prov:ALLY PEARSON 11/11/18 Azithromycin* (Zithromax*) 250 Mg Tablet, 250 MG PO .RAGHAVENDRA DIRECTED, #6 TAB TAKE 500 MG (2 TABS) THE FIRST DAY THEN 250 MG (1 TAB) DAYS 2-5 Prov:ALLY PEARSON F 11/11/18 Ciprofloxacin Hcl* (Ciprofloxacin Hcl*) 500 Mg Tablet, 500 MG PO BID for 5 Days, TAB Prov:ASPEN FLORENCE 08/17/18 Loperamide Hcl* (Imodium*) 2 Mg Capsule, 2 MG PO .AFTER EA LOOSE BM PRN for DIARRHEA, #10 TAB Prov:ASPEN FLORENCE 08/17/18 Ibuprofen* (Motrin*) 800 Mg Tab, 800 MG PO Q8H PRN for PAIN AND OR ELEVATED TEMP, #30 TAB Prov:BANDARBRENDAN 06/12/18 Amoxicillin Trihydrate (Amoxicillin) 500 Mg Tablet, 500 MG PO Q6H for dental infection, #21 TAB Prov:BRENDAN PORTILLO DO 06/12/18 Ondansetron (Ondansetron Odt) 4 Mg Tab.rapdis, 4 MG PO Q6H PRN for NAUSEA AND/OR VOMITING, #10 TAB Prov:SWATHI KELLY PA-C 12/22/17 Ibuprofen* (Motrin*) 600 Mg Tab, 600 MG PO Q6, #30 TAB Prov:SWATHI KELLY PA-C 12/22/17 Acetaminophen* (Tylenol*) 325 Mg Tablet, 2 TAB PO Q6 PRN for PAIN AND OR ELEVATED TEMP, #20 TAB Prov:SHERRIE JEAN BAPTISTE PA-C 08/30/16 Ondansetron Hcl* (Zofran*) 4 Mg Tablet, 4 MG PO Q6H for NAUSEA AND/OR VOMITING, #30 TAB Prov:SHERRIE JEAN BAPTISTE PA-C 08/30/16 Azithromycin* (Zithromax*) 250 Mg Tablet, 250 MG PO .ZPACK DIRECTED, #6 TAB TAKE 500 MG (2 TABS) THE FIRST DAY THEN 250 MG (1 TAB) DAYS 2-5 Prov:KODI OSCAR MD 07/16/16 Albuterol Sulfate* (Ventolin HFA*) 18 Gm Hfa.aer.ad, 2 PUFF INHALATION Q4H, #1 INHALER Prov:KODI OSCAR MD 07/16/16 Albuterol Sulfate* (Albuterol Sulfate* Neb) 0.083%-3 Ml Neb, 2.5 MG NEB Q4 PRN for SHORTNESS OF BREATH, #30 EA Prov:KODI OSCAR MD 07/16/16 Prednisone* (Prednisone*) 20 Mg Tab, 60 MG PO DAILY for 5 Days, #12 TAB 60 mg by mouth for 2 days then 40 mg by mouth for 3 days. Prov:KODI OSCAR MD 07/16/16 Dextromethorphan Hb-Promethazine Hcl* (Promethazine DM* Syrup) 473 Ml Syrup, 5 ML PO Q6 PRN for COUGH for 7 Days, ML Prov:KERWIN LONDONO PA-C 07/07/16 Fluticasone Propionate (Flonase Allergy Relief) 9.9 Ml [place].susp, 1 SPRAY NASAL BID, #1 BOTTLE TO EACH NOSTRIL Prov:KERWIN LONDONO PA-C 07/07/16 Benzonatate* (Tessalon Perle*) 100 Mg Capsule, 100 MG PO Q8H PRN for COUGH for 14 Days, CAP Prov:KERWIN LONDONOC 07/07/16 Allergies Allergies: Coded Allergies: No Known Allergies (Verified Allergy, Unknown, 06/12/18) PMhx/Soc History of Surgery: No Anesthesia Reaction: No Hx Neurological Disorder: No Hx Respiratory Disorders: No Hx Cardiac Disorders: No Hx Psychiatric Problems: No Hx Miscellaneous Medical Probl: No Hx Alcohol Use: No Hx Substance Use: No Hx Tobacco Use: No Smoking Status: Never smoker Physical Exam Vitals Physical Exam Const: No acute distress Head: Atraumatic Eyes: Normal Conjunctiva ENT: Normal External Ears, Nose and Mouth. Bilateral ears: TMs are not erythematous. No bleeding. No discharge. No hearing loss. No mastoid tenderness. Nose: There is no frontal or maxillary sinus tenderness to palpation. Throat: Uvula is in midline and nondisplaced. Tonsils are +1 bilaterally without redness and without exudates. Tolerating secretions. Patent airway. Speaks full and clear sentences. No tripoding. Neck: Full range of motion. No meningismus. No nuchal rigidity. No signs of meningeal irritation. Resp: Wheezing bilaterally. No accessory muscle use in breathing. Cardio: Regular rate and rhythm, no murmurs Abd: Soft, non tender, non distended. Normal bowel sounds Skin: No petechiae or rashes. No accessory muscle use in breathing. Back: No midline or flank tenderness Ext: No cyanosis, or edema Neur: Awake and alert. No neurological deficits. Psych: Normal Mood and Affect Results 24 hrs Current Medications Medications Dose Sig/Melba Start Time Status Last (Trade) Ordered Route PRN Stop Time Admin Dose Reason Admin Albuterol 5 mg ONCE STAT 11/11/18 DC 11/11/18 (Proventil HHN 03:07 03:16 0.083% (Neb)) 11/11/18 03:08 Ipratropium 0.5 mg ONCE ONCE 11/11/18 DC 11/11/18 [place] HHN 03:30 03:16 (Atrovent 11/11/18 03:31 0.02% (Neb)) 125 mg ONCE ONCE 11/11/18 DC 11/11/18 Methylprednis IM 03:30 03:30 olone Sodium 11/11/18 03:31 Succinate (Solu-Medrol) Procedures/MDM Diagnostic tests: X-ray of the chest: No evidence of active cardiopulmonary disease. Treatment: Solu-Medrol IM. Albuterol and Atrovent breathing treatment. Re-evaluation: No accessory muscle use in breathing. Lung sounds are clear to auscultation. No tripoding. Stated that she feels much better at this time and that she is ready to go home. Differential diagnosis I have low suspicion for pneumonia, airway obstruction, anaphylaxis, bronchospasms, severe dehydration. Final diagnosis: Asthmatic bronchitis. Cough. Bronchitis. Prescription: Azithromycin. Motrin. Prednisone. Tessalon Perles. Pro-air. Follow-up with PCP in the next 24-48 hours. Come back here in the emergency department for any new symptoms or any worsening symptoms. All questions and concerns were answered. Patient and family members verbalized understanding and agreed with plan of care. Hemodynamically stable on discharge. Departure Diagnosis: Primary Impression: Cough Additional Impressions: Bronchitis Asthmatic bronchitis Condition: Stable Additional Instructions: Follow-up with PCP in the next 24-48 hours. Come back here in the emergency department for any new symptoms or any worsening symptoms. ALLY PERASON November 11, 2018 03:06
[2018-11-11] MEDS ORDERED: ALBUTEROL 0.083% (NEB) 2.5 MG/3 ML AMP HHN STA (03:07)
[2018-11-11] MEDS ORDERED: IPRATROPIUM (NEB) 0.5 MG/2.5 ML AMP HHN ONE (03:30)
[2018-11-11] MEDS ORDERED: METHYLPREDNISOLONE 125 MG INJ IM ONE (03:30)
[2018-11-11] MEDS ORDERED: ALBU8.5H8 INH (05:10)
[2018-11-11] MEDS ORDERED: PRED20TA PO (05:10)
[2018-11-11] MEDS ORDERED: AZIT250T PO (05:10)
[2018-11-11] MEDS ORDERED: BENZ-6 PO (05:11)
[2018-11-11] MEDS ORDERED: IBUP800T48 PO (05:12)
[2018-11-11 05:22] VITALS: BP 129/82; PULSE 95; RESP 18
== END 2018-11-11 05:28 | disposition home or self-care (01) ==
LOC: FTE 01:38
DX: J45.901 Unspecified asthma with (acute) exacerbation (principal)
CPT/HCPCS: 71046; 94664; 96372; J2930; Z7502; Z7610

== ENCOUNTER 2018-12-12 19:23 | Emergency (ER) | payer OTHER ==
[~2018-12-12] VITALS: Ht 160 cm; Wt 70.0 kg
[~2018-12-12 19:23] MED LIST changes: +ALBU8.5H8 INH
[2018-12-12 19:44] VITALS: Ht 160 cm; Wt 70.0 kg
[2018-12-12] MEDS ORDERED: AZIT500T3 PO (22:06)
[2018-12-12] MEDS ORDERED: METR500T PO (22:06)
[2018-12-12] MEDS ORDERED: BISM262O23 PO (22:06)
--- NOTE | 2018-12-12 22:09 | ERD ---
ER Documentation Chief Complaint Chief Complaint BIB SELF W/ C/O DIARRHEA X10 DAYS HPI 48-year-old female presents with intermittent diarrhea for last 10 days. She denies vomiting. She had some bright red blood on the first day but that has resolved. She denies abdominal pain, active bleeding. The diarrhea is watery for the most part with occasional mucus. She denies foreign travel or suspect food. She denies sick contacts. ROS All systems reviewed and are negative except as per history of present illness. Medications Home Meds Active Scripts Bismuth Subsalicylate* (Pepto-Bismol*) 262 Mg/15 Ml Oral.susp, 15 ML PO Q3H PRN for DIARRHEA for 4 Days, ML Prov:KODI OSCAR MD 12/12/18 Metronidazole* (Flagyl*) 500 Mg Tablet, 500 MG PO BID for 7 Days, TAB Prov:KODI OSCAR MD 12/12/18 Azithromycin* (Zithromax*) 500 Mg Tablet, 500 MG PO DAILY for 3 Days, TAB Prov:KODI OSCAR MD 12/12/18 Ibuprofen* (Motrin*) 800 Mg Tab, 800 MG PO Q6H PRN for PAIN AND OR ELEVATED TEMP, #30 TAB Prov:ALLY PEARSON 11/11/18 Benzonatate* (Tessalon Perle*) 100 Mg Capsule, 100 MG PO Q8H PRN for COUGH, #15 CAP Prov:ALLY PEARSON 11/11/18 Albuterol Sulfate* (Proair HFA*) 8.5 Gm Hfa.aer.ad, 2 PUFF INH Q4 PRN for SHORTNESS OF BREATH, #1 INHALER Prov:PASALLY HALL 11/11/18 Prednisone* (Prednisone*) 20 Mg Tab, 40 MG PO DAILY for 4 Days, TAB Prov:ALLY PEARSON 11/11/18 Azithromycin* (Zithromax*) 250 Mg Tablet, 250 MG PO .ZPACK DIRECTED, #6 TAB TAKE 500 MG (2 TABS) THE FIRST DAY THEN 250 MG (1 TAB) DAYS 2-5 Prov:ALLY PEARSON 11/11/18 Ciprofloxacin Hcl* (Ciprofloxacin Hcl*) 500 Mg Tablet, 500 MG PO BID for 5 Days, TAB Prov:ASPEN FLORENCE 08/17/18 Loperamide Hcl* (Imodium*) 2 Mg Capsule, 2 MG PO .AFTER EA LOOSE BM PRN for DIARRHEA, #10 TAB Prov:ASPEN FLORENCE 08/17/18 Ibuprofen* (Motrin*) 800 Mg Tab, 800 MG PO Q8H PRN for PAIN AND OR ELEVATED TEMP, #30 TAB Prov:BRENDAN PORTILLO 06/12/18 Amoxicillin Trihydrate (Amoxicillin) 500 Mg Tablet, 500 MG PO Q6H for dental infection, #21 TAB Prov:BRENDAN PORTILLO 06/12/18 Ondansetron (Ondansetron Odt) 4 Mg Tab.rapdis, 4 MG PO Q6H PRN for NAUSEA AND/OR VOMITING, #10 TAB Prov:SWATHI KELLY PA-C 12/22/17 Ibuprofen* (Motrin*) 600 Mg Tab, 600 MG PO Q6, #30 TAB Prov:SWATHI KELLYC 12/22/17 Acetaminophen* (Tylenol*) 325 Mg Tablet, 2 TAB PO Q6 PRN for PAIN AND OR ELEVATED TEMP, #20 TAB Prov:SHERRIE JEAN BAPTISTE PA-C 08/30/16 Ondansetron Hcl* (Zofran*) 4 Mg Tablet, 4 MG PO Q6H for NAUSEA AND/OR VOMITING, #30 TAB Prov:SHERRIE JEAN BAPTISTEC 08/30/16 Azithromycin* (Zithromax*) 250 Mg Tablet, 250 MG PO .[place] DIRECTED, #6 TAB TAKE 500 MG (2 TABS) THE FIRST DAY THEN 250 MG (1 TAB) DAYS 2-5 Prov:KODI OSCAR MD 07/16/16 Albuterol Sulfate* (Ventolin HFA*) 18 Gm Hfa.aer.ad, 2 PUFF INHALATION Q4H, #1 INHALER Prov:KODI OSCAR MD 07/16/16 Albuterol Sulfate* (Albuterol Sulfate* Neb) 0.083%-3 Ml Neb, 2.5 MG NEB Q4 PRN for SHORTNESS OF BREATH, #30 EA Prov:KODI OSCAR MD 07/16/16 Prednisone* (Prednisone*) 20 Mg Tab, 60 MG PO DAILY for 5 Days, #12 TAB 60 mg by mouth for 2 days then 40 mg by mouth for 3 days. Prov:KODI OSCAR MD 07/16/16 Dextromethorphan Hb-Promethazine Hcl* (Promethazine DM* Syrup) 473 Ml Syrup, 5 ML PO Q6 PRN for COUGH for 7 Days, ML Prov:LEOPOLDOTAKERWIN ALEXANDRA-C 07/07/16 Fluticasone Propionate (Flonase Allergy Relief) 9.9 Ml [place].susp, 1 SPRAY NASAL BID, #1 BOTTLE TO EACH NOSTRIL Prov:KERWIN LONDONO PA-C 07/07/16 Benzonatate* (Tessalon Perle*) 100 Mg Capsule, 100 MG PO Q8H PRN for COUGH for 14 Days, CAP Prov:LEOPOLDOTARIANKERWIN PA-C 07/07/16 Allergies Allergies: Coded Allergies: No Known Allergies (Verified Allergy, Unknown, 06/12/18) PMhx/Soc History of Surgery: No Anesthesia Reaction: No Hx Neurological Disorder: No Hx Respiratory Disorders: No Hx Cardiac Disorders: No Hx Psychiatric Problems: No Hx Miscellaneous Medical Probl: No Hx Alcohol Use: No Hx Substance Use: No Hx Tobacco Use: No Smoking Status: Never smoker FmHx Family History: No diabetes, No coronary disease, No other Physical Exam Vitals Vital Signs Date Temp Pulse Resp B/P (MAP) Pulse Ox O2 O2 Flow FiO2 Time Delivery Rate 12/12/18 99.2 87 20 163/86 97 19:44 (111) Physical Exam Const: No acute distress Head: Atraumatic Eyes: Normal Conjunctiva ENT: Normal External Ears, Nose and Mouth. Neck: Full range of motion. No meningismus. Resp: Clear to auscultation bilaterally Cardio: Regular rate and rhythm, no murmurs Abd: Soft, non tender, non distended. Normal bowel sounds Skin: No petechiae or rashes Back: No midline or flank tenderness Ext: No cyanosis, or edema Neur: Awake and alert Psych: Normal Mood and Affect Procedures/MDM Patient presents with intermittent diarrhea for last 10 days. She has no signs of abdominal pain, dehydration and no active rectal bleeding after one-time episode 10 days ago. She is well-appearing. We will treat empirically given the duration of symptoms with Flagyl and Zithromax for infectious diarrhea and recommendations for primary care follow-up and possible gastroenterology evaluation for recurrent symptoms or persistent bleeding. She has no signs of surgical abdomen, appendicitis, additional concerning signs or symptoms. She is advised to take Pepto-Bismol as well. The patient was stable with no new complaints during the ER course. Clinically, there is no current evidence to suggest meningitis, sepsis, acute abdomen, pneumonia, stroke, acute coronary syndrome, pulmonary embolism, aortic dissection or any other emergent condition appearing to require further evaluation or hospitalization. Patient counseled regarding my diagnostic impression and care plan. Prior to discharge all questions answered. Pt agrees with treatment plan and understands strict return precautions. Pt is instructed to follow up with primary care provider within 24- 48 hours. Precautionary instructions provided including instructions to return to the ER if not improving or for any worsening or changing symptoms or concerns. Disclaimer: Inadvertent spelling and grammatical errors are likely due to EHR/dictation software use and do not reflect on the overall quality of patient care. Also, please note that the electronic time recorded on this note does not necessarily reflect the actual time of the patient encounter. Departure Diagnosis: Primary Impression: Diarrhea Diarrhea type: unspecified type Qualified Codes: R19.7 - Diarrhea, unspecified Condition: Stable Patient Instructions: Self-Care for Vomiting and Diarrhea, Hypertension, To Be Confirmed Referrals: DOCTOR,NOT ON STAFF (PCP) Additional Instructions: We will treat for infection given the duration of symptoms. Recheck for fevers, bleeding, pain, new worsening symptoms. Recommend gastroenterology specialist for persistent symptoms. May need authorization from primary doctor for specialist visit. KODI OSCAR MD Dec 12, 2018 22:09
[2018-12-12 22:11] VITALS: BP 148/77; PULSE 60; RESP 18
== END 2018-12-12 22:12 | disposition home or self-care (01) ==
LOC: FTE 19:23
DX: R19.7 Diarrhea, unspecified (principal)
CPT/HCPCS: 99283

== ENCOUNTER → 2019-01-13 | Emergency (ER) | payer OTHER ==
[~2019-01-13] VITALS: Wt 78.0 kg
[~2019-01-13] MED LIST changes: +ACET500C5 PO; +AZIT500T3 PO; +BISM262O23 PO; +METR500T PO; +ONDANSETRON (ODT) 4 MG TAB ODT STA
[2019-01-13 09:38] VITALS: BP 144/89; PULSE 89; RESP 18; Wt 78.0 kg
--- NOTE | 2019-01-13 12:15 | ERD ---
ER Documentation Chief Complaint Chief Complaint diarrhea since wednesday, no vomiting, eatig well, x 2 bm today HPI 48-year-old female presenting with diarrhea and left lower quadrant pain x2 days. She had a bowel movement today. Has had episodes of vomiting but has not vomited over the last for 3 days. No change in urination but does have diarrhea. Medical history asthma. Surgical history hysterectomy. Social history denies. Allergy to Vicodin ROS All systems reviewed and are negative except as per history of present illness. Medications Home Meds Active Scripts Acetaminophen* (Tylophen*) 500 Mg Capsule, 1 CAP PO Q6H PRN for PAIN AND OR ELEVATED TEMP, #20 CAP Prov:SHERRIE JEAN BAPTISTE PA-C 01/13/19 Ondansetron (Ondansetron Odt) 4 Mg Tab.rapdis, 4 MG PO Q6H PRN for NAUSEA AND/OR VOMITING, #10 TAB Prov:SHERRIE JEAN BAPTISTE PA-C 01/13/19 Bismuth Subsalicylate* (Pepto-Bismol*) 262 Mg/15 Ml Oral.susp, 15 ML PO Q3H PRN for DIARRHEA for 4 Days, ML Prov:KODI OSCAR MD 12/12/18 Metronidazole* (Flagyl*) 500 Mg Tablet, 500 MG PO BID for 7 Days, TAB Prov:KODI OSCAR MD 12/12/18 Azithromycin* (Zithromax*) 500 Mg Tablet, 500 MG PO DAILY for 3 Days, TAB Prov:KODI OSCAR MD 12/12/18 Ibuprofen* (Motrin*) 800 Mg Tab, 800 MG PO Q6H PRN for PAIN AND OR ELEVATED TEMP, #30 TAB Prov:ALLY PEARSON 11/11/18 Benzonatate* (Tessalon Perle*) 100 Mg Capsule, 100 MG PO Q8H PRN for COUGH, #15 CAP Prov:ALLY PEARSON 11/11/18 Albuterol Sulfate* (Proair HFA*) 8.5 Gm Hfa.aer.ad, 2 PUFF INH Q4 PRN for SHORTNESS OF BREATH, #1 INHALER Prov:JUDIEILAALLY ZAMBRANO 11/11/18 Prednisone* (Prednisone*) 20 Mg Tab, 40 MG PO DAILY for 4 Days, TAB Prov:ALLY PEARSON 11/11/18 Azithromycin* (Zithromax*) 250 Mg Tablet, 250 MG PO .ZPACK DIRECTED, #6 TAB TAKE 500 MG (2 TABS) THE FIRST DAY THEN 250 MG (1 TAB) DAYS 2-5 Prov:ALLY PEARSON 11/11/18 Ciprofloxacin Hcl* (Ciprofloxacin Hcl*) 500 Mg Tablet, 500 MG PO BID for 5 Days, TAB Prov:LUDIVINAASPEN 08/17/18 Loperamide Hcl* (Imodium*) 2 Mg Capsule, 2 MG PO .AFTER EA LOOSE BM PRN for DIARRHEA, #10 TAB Prov:ASPEN FLORENCE 08/17/18 Ibuprofen* (Motrin*) 800 Mg Tab, 800 MG PO Q8H PRN for PAIN AND OR ELEVATED TEMP, #30 TAB Prov:BRENDAN PORTILLO DO 06/12/18 Amoxicillin Trihydrate (Amoxicillin) 500 Mg Tablet, 500 MG PO Q6H for dental i nfection, #21 TAB Prov:BRENDAN PORTILLO DO 06/12/18 Ondansetron (Ondansetron Odt) 4 Mg Tab.rapdis, 4 MG PO Q6H PRN for NAUSEA AND/OR VOMITING, #10 TAB Prov:SWATHI KELLY PA-C 12/22/17 Ibuprofen* (Motrin*) 600 Mg Tab, 600 MG PO Q6, #30 TAB Prov:SWATHI KELLY PA-C 12/22/17 Acetaminophen* (Tylenol*) 325 Mg Tablet, 2 TAB PO Q6 PRN for PAIN AND OR ELEVATED TEMP, #20 TAB Prov:SHERRIE JEAN BAPTISTE PA-C 08/30/16 Ondansetron Hcl* (Zofran*) 4 Mg Tablet, 4 MG PO Q6H for NAUSEA AND/OR VOMITING, #30 TAB Prov:SHERRIE JEAN BAPTISTE PA-C 08/30/16 Azithromycin* (Zithromax*) 250 Mg Tablet, 250 MG PO .ZPACK DIRECTED, #6 TAB TAKE 500 MG (2 TABS) THE FIRST DAY THEN 250 MG (1 TAB) DAYS 2-5 Prov:KODI OSCAR MD 07/16/16 Albuterol Sulfate* (Ventolin HFA*) 18 Gm Hfa.aer.ad, 2 PUFF INHALATION Q4H, #1 INHALER Prov:KODI OSCAR MD 07/16/16 Albuterol Sulfate* (Albuterol Sulfate* Neb) 0.083%-3 Ml Neb, 2.5 MG NEB Q4 PRN for SHORTNESS OF BREATH, #30 EA Prov:KODI OSCAR MD 07/16/16 Prednisone* (Prednisone*) 20 Mg Tab, 60 MG PO DAILY for 5 Days, #12 TAB 60 mg by mouth for 2 days then 40 mg by mouth for 3 days. Prov:KODI OSCAR MD 07/16/16 Dextromethorphan Hb-Promethazine Hcl* (Promethazine DM* Syrup) 473 Ml Syrup, 5 ML PO Q6 PRN for COUGH for 7 Days, ML Prov:KERWIN LONDONO PA-C 07/07/16 Fluticasone Propionate (Flonase Allergy Relief) 9.9 Ml [place].susp, 1 SPRAY NASAL BID, #1 BOTTLE TO EACH NOSTRIL Prov:KERWIN LONDONO PA-C 07/07/16 Benzonatate* (Tessalon Perle*) 100 Mg Capsule, 100 MG PO Q8H PRN for COUGH for 14 Days, CAP Prov:KERWIN LONDONO PA-C 07/07/16 Allergies Allergies: Coded Allergies: No Known Allergies (Verified Allergy, Unknown, 06/12/18) PMhx/Soc Medical and Surgical Hx: pt denies Medical Hx, pt denies Surgical Hx History of Surgery: No Anesthesia Reaction: No Hx Neurological Disorder: No Hx Respiratory Disorders: No Hx Cardiac Disorders: No Hx Psychiatric Problems: No Hx Miscellaneous Medical Probl: No Hx Alcohol Use: No Hx Substance Use: No Hx Tobacco Use: No Smoking Status: Never smoker FmHx Family History: No diabetes, No coronary disease, No other Physical Exam Vitals Vital Signs Date Temp Pulse Resp B/P (MAP) Pulse Ox O2 O2 Flow FiO2 Time Delivery Rate 01/13/19 98.1 89 18 144/89 99 09:38 (107) Physical Exam GENERAL: The patient is well-appearing, well-nourished, in no acute distress HEENT: Atraumatic. Conjunctivae are pink. Pupils equal, round, and reactive to light. There is no scleral icterus. Tympanic membranes clear bilaterally. Oropharynx clear. CHEST: Clear to auscultation bilaterally. There are no rales, wheezes or rhonchi. HEART: Regular rate and rhythm. No murmurs, clicks, rubs or gallops. ABDOMEN: Tenderness to palpation in the left lower quadrant with no rebound tenderness and no rigidity. No organomegaly. Result Diagram: 01/13/19 1123 01/13/19 1123 Results 24 hrs Laboratory Tests Test 01/13/19 10:53 01/13/19 10:54 01/13/19 11:23 POC Beta HCG, Qualitative NEGATIVE Urine Color YELLOW Urine Clarity SLIGHTLY CLOUDY Urine pH 5.0 Urine Specific [place] 1.019 Urine Ketones NEGATIVE mg/dL Urine Nitrite NEGATIVE mg/dL Urine Bilirubin NEGATIVE mg/dL Urine Urobilinogen NEGATIVE mg/dL Urine Leukocyte Esterase NEGATIVE [place]/ul Urine Microscopic RBC 0 /HPF Urine Microscopic WBC 0 /HPF Urine Squamous Epithelial Cells FEW /HPF Urine Mucus FEW /HPF Urine Hemoglobin NEGATIVE mg/dL Urine Glucose NEGATIVE mg/dL Urine Total Protein NEGATIVE mg/dl White Blood Count 7.9 10^3/ul Red Blood Count 5.09 10^6/ul Hemoglobin 14.6 g/dl Hematocrit 45.6 % Mean Corpuscular Volume 89.6 fl Mean Corpuscular Hemoglobin 28.7 pg Mean Corpuscular 32.0 g/dl Hemoglobin Concent Red Cell Distribution Width 12.6 % Platelet Count 223 10^3/UL Mean Platelet Volume 10.7 fl Immature Granulocytes % 0.500 % Neutrophils % 65.0 % Lymphocytes % 27.7 % Monocytes % 5.3 % Eosinophils % 1.0 % Basophils % 0.5 % Nucleated Red Blood Cells % 0.0 /100WBC Immature Granulocytes # 0.040 10^3/ul Neutrophils # 5.1 10^3/ul Lymphocytes # 2.2 10^3/ul Monocytes # 0.4 10^3/ul Eosinophils # 0.1 10^3/ul Basophils # 0.0 10^3/ul Nucleated Red Blood Cells # 0.0 10^3/ul Sodium Level 139 mmol/L Potassium Level 4.3 mmol/L Chloride Level 106 mmol/L Carbon Dioxide Level 24 mmol/L Anion Gap 9 Blood Urea Nitrogen 7 mg/dl Creatinine 0.65 mg/dl Est Glomerular Filtrat > 60 mL/min Rate mL/min Glucose Level 108 mg/dl Calcium Level 9.7 mg/dl Total Bilirubin 0.5 mg/dl Direct Bilirubin 0.00 mg/dl Indirect Bilirubin 0.5 mg/dl Aspartate Amino Transf (AST/SGOT) 34 IU/L Alanine 55 IU/L Aminotransferase (ALT/SGPT) Alkaline Phosphatase 103 IU/L Total Protein 7.4 g/dl Albumin 4.5 g/dl Globulin 2.90 g/dl Albumin/Globulin Ratio 1.55 Lipase 86 U/L Current Medications Medications Dose Sig/Melba Start Time Status Last (Trade) Ordered Route PRN Stop Time Admin Dose Reason Admin Ondansetron 4 mg ONCE STAT 01/13/19 DC 01/13/19 HCl (Zofran ODT 10:37 01/13/19 10:48 Odt) 10:39 Procedures/MDM DIAGNOSTIC IMAGING REPORT Patient: NAHOMI JENKINS : 1970 Age: 48 Sex: F MR #: [id number] DOS: 01/13/19 1037 Ordering MD: ROSEMARIE JEAN BAPTISTE PA-C Location: [facility] Room/Bed: PROCEDURE: CT Abdomen and Pelvis without contrast CLINICAL INDICATION: Abdominal pain and diarrhea TECHNIQUE: Transaxial computed tomographic images of the abdomen and pelvis were obtained without intravenous contrast. Coronal and sagittal reformatted images were provided. DICOM images are available. Radiation dose: CTDIvol (mGy) = 11.34; total DLP (mGy.cm) = 640.08 One or more of the following dose reduction techniques were used: - Automated exposure control. - Adjustment of the mA and/or kV according to patient size. - Use of iterative reconstruction technique. COMPARISON: 12/22/2017. FINDINGS: The visualized lung bases are clear. There is no pleural effusion. The liver is enlarged and diffusely hypoattenuating representing hepatic steatosis. Ill-defined area of hyperattenuation in the liver in hepatic segment 4A and 4B, and segment 5 extending adjacent to the gallbladder is noted and some of which appears nodular. This likely represents focal fatty sparing and was present on the prior examination of 2018. The gallbladder, spleen, pancreas, adrenal glands, and kidneys have normal noncontrast appearance. There is no calcific renal calculus or hydronephrosis. There is a small hiatal hernia. There is no evidence of intestinal obstruction or bowel wall thickening. The appendix is not seen. There is no free air or free intraperitoneal fluid. There is no retroperitoneal lymphadenopathy. The aorta is of normal diameter. Urinary bladder is incompletely distended. The uterus is surgically absent. The osseous structures of the abdomen and pelvis are intact. IMPRESSION: 1. Hepatomegaly with diffuse hepatic steatosis. Ill-defined areas of hyperattenuation in the liver extending near the gallbladder are again identified, some of which appear nodular and likely represent areas of focal fatty sparing. This can be further evaluated with MRI of the abdomen without and with intravenous contrast per liver protocol. 2. Small hiatal hernia. 3. No bowel obstruction or bowel wall thickening. MDM: 48-year-old female complaining of abdominal pain. Patient's abdominal exam is non-concerning and CT scan is within normal limits. Patient is recommended to follow-up with her primary care. She had some abnormal findings noted in the right upper quadrant but given her pain is not in that region and she has normal blood work patient is recommended follow-up with primary care. I will suspicion for pelvic abnormality. I do not feel ultrasound indicated. Patient has pain superior to the pelvis and does not warrant ultrasound at this time. All questions answered at discharge Departure Diagnosis: Primary Impression: Diarrhea Condition: Stable Patient Instructions: Self-Care for Vomiting and Diarrhea Referrals: [facility] YOU HAVE RECEIVED A MEDICAL SCREENING EXAM AND THE RESULTS INDICATE THAT YOU DO NOT HAVE A CONDITION THAT REQUIRES URGENT TREATMENT IN THE EMERGENCY DEPARTMENT. FURTHER EVALUATION AND TREATMENT OF YOUR CONDITION CAN WAIT UNTIL YOU ARE SEEN IN YOUR DOCTORS OFFICE WITHIN THE NEXT 1-2 DAYS. IT IS YOUR RESPONSIBILITY TO MAKE AN APPOINTMENT FOR FOLOW-UP CARE. IF YOU HAVE A PRIMARY DOCTOR --you should call your primary doctor and schedule an appointment IF YOU DO NOT HAVE A PRIMARY DOCTOR YOU CAN CALL OUR PHYSICIAN REFERRAL HOTLINE AT IF YOU CAN NOT AFFORD TO SEE A PHYSICIAN YOU CAN CHOSE FROM THE FOLLOWING COUNTS INCLUDE 234 BEDS AT THE [facility]ICS [facility] [address] [facility] [address] [facility] [address] [facility] [facility] [address] [facility]. [facility] [address] [facility]. [facility] [address] Additional Instructions: FOLLOW UP WITH YOUR PRIMARY CARE PHYSICIAN TOMORROW.Return to this facility if you are not improving as expected. SHERRIE JEAN BAPTISTE PA-C Jan 13, 2019 12:15
== END | disposition home or self-care (01) ==
LOC: FTE 09:34
DX: R19.7 Diarrhea, unspecified (principal)
CPT/HCPCS: 74176; 80053; 81001; 81003; 81025; 83690; 85025; Z7610

== ENCOUNTER 2019-03-06 09:23 | Emergency (ER) | payer OTHER ==
[~2019-03-06] VITALS: Ht 160 cm; Wt 69.7 kg
[~2019-03-06 09:23] MED LIST changes: +NAPR-985 PO; -ONDANSETRON (ODT) 4 MG TAB ODT STA; +RANI150T5 PO; +[UNRECOGNIZED DRUG - CODE] PO
[2019-03-06 09:28] VITALS: Ht 160 cm; Wt 69.7 kg
[2019-03-06] MEDS ORDERED: morphine 4 MG/ML VIAL IV STA (10:05)
[2019-03-06] MEDS ORDERED: ONDANSETRON 4 MG INJ IV STA (10:05)
[2019-03-06 12:26] VITALS: BP 126/73; PULSE 78; RESP 18
== END 2019-03-06 12:28 | disposition home or self-care (01) ==
LOC: E/R 09:23
DX: N93.9 Abnormal uterine and vaginal bleeding, unspecified (principal); J45.909 Unspecified asthma, uncomplicated
CPT/HCPCS: 36415; 74176; 80053; 81001; 83690; 84484; 85025; 93005; 96374; 96375; J2270; J2405; Z7502

== ENCOUNTER 2019-04-11 12:20 | Emergency (ER) | payer OTHER ==
[~2019-04-11] VITALS: Wt 89.0 kg
[~2019-04-11 12:20] MED LIST changes: -ACET325T33 PO; -ACET500C5 PO; -ALBU18HF INHALATION; -ALBU2.5V3 NEB; -ALBU8.5H8 INH; -AMOX500T PO; -AZIT250T PO; -AZIT500T3 PO; -BENZ-6 PO; -CIPR500T4 PO; -D-ME473S2 PO; -FLUT9.9S NASAL; -IBUP-1542 PO; -IBUP800T48 PO; -LOPE2CAP PO; -METR500T PO; -ONDA4TAB14 PO; -ONDA4TAB8 PO; -PRED20TA PO
[2019-04-11] MEDS ORDERED: KETOROLAC 30 MG INJ IM STA (14:34)
[2019-04-11 14:57] VITALS: BP 150/75; PULSE 68; RESP 20
== END 2019-04-11 15:03 | disposition home or self-care (01) ==
LOC: FTE 12:20
DX: M79.601 Pain in right arm (principal); J45.909 Unspecified asthma, uncomplicated
CPT/HCPCS: 81025; 96372; J1885; Z7502